=== PATIENT | male | born 2000 | race Caucasian/White ===

== ENCOUNTER 2023-05-17 11:58 | Emergency (ER) | payer OTHER, SELFPAY ==
--- NOTE | 2023-05-17 | ECG_ITS ---
Test Reason : chest pain Blood Pressure : / mmHG Vent. Rate : 088 BPM Atrial Rate : 088 BPM P-R Int : 170 ms QRS Dur : 102 ms QT Int : 356 ms P-R-T Axes : 029 -02 -01 degrees QTc Int : 430 ms Normal sinus rhythm Minimal voltage criteria for LVH, may be normal variant ( R in aVL ) Borderline ECG No previous ECGs available Referred By: Generic ED Physician Electronically Signed By:LILIA MCGHEE MD
[2023-05-17 12:29] VITALS: BP 124/79; PULSE 84; RESP 21; TEMP 37.1; O2SAT 97; BMI 35.1
--- NOTE | 2023-05-17 12:35 | ED_ITS ---
HPI - General Adult General Chief complaint: Arrhythmia/Palpitations Stated complaint: Heart palpitations - sent by urgent care Time Seen by Provider: 05/17/23 21:18 Related Data Allergies Allergy/AdvReac Type Severity Reaction Status Date / Time No Known Allergies Allergy Verified 05/17/23 12:35 [facility] Social History Social History Alcohol intake: never Physical Exam ED Vital Signs: Vital Signs - 24 hr 05/17/23 22:18 Pulse Rate 84 Respiratory Rate 18 Blood Pressure 138/86 Pulse Oximetry 96 Oxygen Delivery Method Room Air BMI result Body Mass Index 35.1 Course Course Course Narrative: RME performed by Barbie Cruz PA-C. Patient is a 22 year old assigned male at presenting to the emergency department with an irregular heart beat and intermittent chest pain since 05/03/2023. Detailed physical exam and review of systems are deferred to the behavioral health clinician. Labs ordered. Patient placed back in the waiting room pending room availability and results. Patient seen and dispositioned by Dr. Davis. Please see his note from this date. Medical Decision Making Lab Data 05/17/23 12:45 05/17/23 12:45 Labs: Lab Results 05/17/23 05/17/23 Range/Units 12:44 12:45 WBC 5.3 (4.8-10.8) X10*3/uL RBC 4.80 (4.60-5.80) X10*6/uL Hgb 13.9 L (14.0-18.0) g/dl Hct 41.6 L (42.0-52.0) % MCV 86.7 (80.0-98.0) fL MCH 29.0 (27.0-33.0) pg MCHC 33.4 (31.0-36.0) g/dl RDW 11.8 (11.0-16.0) % Plt Count 264 (160-400) X10*3/uL MPV 10.4 (9.4-12.4) fL Immature Gran % (Auto) 0.4 (0.0-0.4) % Neut % (Auto) 55.7 (45-73) % Lymph % (Auto) 30.0 (20-40) % [place] % (Auto) 8.9 (2-11) % Eos % (Auto) 4.4 H (0-4) % Baso % (Auto) 0.6 (0-2) % Lymph # (Auto) 1.6 (1.2-4.9) X10*3/uL [place] # (Auto) 0.5 (0.1-1.2) X10*3/uL Eos # (Auto) 0.2 (0.0-0.4) X10*3/uL Baso # (Auto) 0.0 (0.0-0.2) X10*3/uL Abs Immat Gran (auto) 0.02 (0.00-0.03) X10*3/uL Absolute Neuts (auto) 2.9 (2.0-8.3) x10*3/uL Absolute Nucleated RBC 0.000 (0.0-0.012) X10*3/uL Nucleated RBC % (auto) 0.0 (0.0-0.2) /100WBC Sodium 138 (135-145) mmol/L Potassium 4.0 (3.3-5.1) mmol/L Chloride 105 (96-108) mmol/L Carbon Dioxide 25 (22-29) mmol/L Anion Gap 12 (12-20) BUN 11 (9-16) mg/dL Creatinine 0.82 (0.5-1.4) mg/dL Estim Creat Clear Calc 196.1 Estimated GFR > 60 Random Glucose 93 (60-115) mg/dL Calcium 9.8 (8.4-10.2) mg/dL Magnesium 2.0 (1.6-2.6) mg/dL Total Bilirubin 0.6 (0.0-1.0) mg/dL AST 16 (5-37) U/L ALT 28 (0-40) U/L Alkaline Phosphatase 76 (39-117) U/L Troponin I High Sens < 2.7 (<3.5-35.0) ng/L Total Protein 7.7 (6.5-8.0) g/dL Albumin 4.7 (3.5-5.0) g/dL Influenza Type A (PCR) NEGATIVE (Negative) Influenza Type B (PCR) NEGATIVE (Negative) RSV RNA Qual (PCR) NEGATIVE (Negative) SARS-CoV-2 RNA (RT-PCR) NEGATIVE (Negative) Discharge Plan Discharge Clinical Impression: Palpitations Patient Disposition: Home, Self-Care Instructions: Heart Palpitations (ED) Referrals: Sonido Dodson MD [Physician] - 05/19/23 Interventions: ED Discharge Assessment Last Done: 05/17/23 22:19 Discharge Date/Time: 05/17/23 22:19
[2023-05-17 13:13] LABS: Alanine Aminotransferase 28 U/L (0-40); Albumin Level 4.7 g/dL (3.5-5.0); Alkaline Phosphatase 76 U/L (39-117); Anion Gap 12 (12-20); Aspartate Amino Transferase 16 U/L (5-37); Bilirubin Total 0.6 mg/dL (0.0-1.0); Blood Urea Nitrogen 11 mg/dL (9-16); Calcium 9.8 mg/dL (8.4-10.2); Carbon Dioxide 25 mmol/L (22-29); Chloride 105 mmol/L (96-108); Creatinine Clr Calc Pharmacy 196.1; Estimated Glomerular Filt Rate > 60; Glucose Random 93 mg/dL (60-115); Sodium 138 mmol/L (135-145); Total Protein 7.7 g/dL (6.5-8.0)
--- NOTE | 2023-05-17 21:46 | ED_ITS ---
HPI - Arrhythmia/Palpitations General Chief Complaint: Arrhythmia/Palpitations Stated Complaint: Heart palpitations - sent by urgent care Time Seen by Provider: 05/17/23 21:18 History of Present Illness HPI narrative: It is typically patient is a 22-year-old male presented today with having palpitations since [place]. Usually it is 1-2 beats. It did not make him pass out. He did feel kind of odd. He denies any recreational drug use. No energy drinks. No leg swelling. No history of blood clots in the past. No chest pain. No diaphoresis. No loss of consciousness. No near syncopal or syncopal episode. Patient no new medication. No fever no chills. No systemic complaints. These episodes are happening up proximally once every few hours. No history of similar symptoms in the past. Related Data Allergies Allergy/AdvReac Type Severity Reaction Status Date / Time No Known Allergies Allergy Verified 05/17/23 12:35 Review of Systems 2 Review of Systems: No fever no chills no chest pain positive palpitation Yes all other systems are reviewed and are negative [facility] Past Medical History Attestation statement: The following information was validated with the patient. Onset Date is defined in the Problem List Problems that require an onset date and time if occurred within 24 hrs of arrival to the ED Aortic Dissection and Rupture; Neurologic impairment; Cardiopulmonary Arrest; Endotracheal Intubation; Insertion or Replacement of Mechanical Circulatory Assist Device Social History Social History Advance Directives: No Advance Directives Information Provided: No Physical Exam 2 Vital Signs: Vital Signs: Last Vital Signs Temp 98.7 F 05/17/23 12:29 Pulse 84 05/17/23 12:29 Resp 21 H 05/17/23 12:29 BP 124/79 05/17/23 12:29 Pulse Ox 97 05/17/23 12:29 O2 Del Method Room Air 05/17/23 12:29 BMI result Body Mass Index 35.1 Appearance: Alert. Oriented X3. No acute distress. Eyes: Pupils equal, round and reactive to light. ENT: Pharynx normal. Neck: Normal inspection. Neck supple. No lymph nodes noted. No crepitus CVS: Normal heart rate and rhythm. Pulses normal. Normal S1 and S2 Respiratory: No respiratory distress. Breath sounds normal. No Wheezing. No rales Abdomen: Soft and nontender. No rigidity. No distention. good BS x4 Skin: Skin warm and dry. Normal skin color. Normal skin turgor. Extremities: No lower extremity edema. Neurovascular intact to all extremities. No Lacerations. No Rash Neuro: Oriented X 3. No motor deficit. No sensory deficit. Moving all extermities. No slurred speech Medical Decision Making Medical Decision Making [facility] Narrative: Patient having palpitation. Well-appearing no distress. No significant cardiac risk factors. No recreational drug use. No energy drinks. No alcohol. Patient is cardiac enzymes are normal. Hemoglobin is 13.9 there is no evidence for anemia. No distress. Patient's EKG in the ED was basically normal. Case discussed with cardiology team. Will have patient follow-up set up monitoring on an outpatient basis. Currently in stable condition will discharge home. Differential Diagnosis Differential Diagnoses: The differential diagnosis associated with the presentation includes Arrhythmia, PE, SVTs, V-tach, PVCs Admission/Observation Consideration of admission/observation: Escalation of care including admission/observation considered Patient well-appearing symptom only 1-2 beats. Thin feel patient needs to be admitted Consult Healthcare Provider Management of the patient was discussed with: Top Steep Tender (Cardiology) Lab Data [facility] Lab Attestation statement: I reviewed the patient's lab results. 05/17/23 12:45 05/17/23 12:45 Labs: Lab Results 05/17/23 05/17/23 Range/Units 12:44 12:45 WBC 5.3 (4.8-10.8) X10*3/uL RBC 4.80 (4.60-5.80) X10*6/uL Hgb 13.9 L (14.0-18.0) g/dl Hct 41.6 L (42.0-52.0) % MCV 86.7 (80.0-98.0) fL MCH 29.0 (27.0-33.0) pg MCHC 33.4 (31.0-36.0) g/dl RDW 11.8 (11.0-16.0) % Plt Count 264 (160-400) X10*3/uL MPV 10.4 (9.4-12.4) fL Immature Gran % (Auto) 0.4 (0.0-0.4) % Neut % (Auto) 55.7 (45-73) % Lymph % (Auto) 30.0 (20-40) % [place] % (Auto) 8.9 (2-11) % Eos % (Auto) 4.4 H (0-4) % Baso % (Auto) 0.6 (0-2) % Lymph # (Auto) 1.6 (1.2-4.9) X10*3/uL [place] # (Auto) 0.5 (0.1-1.2) X10*3/uL Eos # (Auto) 0.2 (0.0-0.4) X10*3/uL Baso # (Auto) 0.0 (0.0-0.2) X10*3/uL Abs Immat Gran (auto) 0.02 (0.00-0.03) X10*3/uL Absolute Neuts (auto) 2.9 (2.0-8.3) x10*3/uL Absolute Nucleated RBC 0.000 (0.0-0.012) X10*3/uL Nucleated RBC % (auto) 0.0 (0.0-0.2) /100WBC Sodium 138 (135-145) mmol/L Potassium 4.0 (3.3-5.1) mmol/L Chloride 105 (96-108) mmol/L Carbon Dioxide 25 (22-29) mmol/L Anion Gap 12 (12-20) BUN 11 (9-16) mg/dL Creatinine 0.82 (0.5-1.4) mg/dL Estim Creat Clear Calc 196.1 Estimated GFR > 60 Random Glucose 93 (60-115) mg/dL Calcium 9.8 (8.4-10.2) mg/dL Magnesium 2.0 (1.6-2.6) mg/dL Total Bilirubin 0.6 (0.0-1.0) mg/dL AST 16 (5-37) U/L ALT 28 (0-40) U/L Alkaline Phosphatase 76 (39-117) U/L Troponin I High Sens < 2.7 (<3.5-35.0) ng/L Total Protein 7.7 (6.5-8.0) g/dL Albumin 4.7 (3.5-5.0) g/dL Influenza Type A (PCR) NEGATIVE (Negative) Influenza Type B (PCR) NEGATIVE (Negative) RSV RNA Qual (PCR) NEGATIVE (Negative) SARS-CoV-2 RNA (RT-PCR) NEGATIVE (Negative) Independent Interpretation I performed an independent interpretation of an: EKG (Sinus heart rate is 75 ND QRS QTC within normal limits there is no acute ST segment elevation noted) Discharge Plan Discharge Clinical Impression: Palpitations Patient Disposition: Home, Self-Care Instructions: Heart Palpitations (ED) Referrals: Sonido Dodson MD [Physician] - 05/19/23
[2023-05-17 22:18] VITALS: BP 138/86; PULSE 84; RESP 18; O2SAT 96
== END 2023-05-17 22:19 | disposition home or self-care (01) ==
PROVIDERS: Physician Assistant Medical; Emergency Provider Emergency Medicine Emergency Medical Services; PCP Internal Medicine
DX: I49.9 Cardiac arrhythmia, unspecified (principal); Z20.822 Contact with and (suspected) exposure to COVID-19; Z20.828 Contact with and (suspected) exposure to other viral communicable diseases; Z79.899 Other long term (current) drug therapy
CPT/HCPCS: 0241U; 71046; 80053; 83735; 84484; 85025; 93005; 99283; 99284

== ENCOUNTER → 2023-05-17 12:24 | Outpatient (BNV) | payer OTHER, SELFPAY | PROVIDERS: PCP Internal Medicine; Visit Provider Internal Medicine Cardiovascular Disease | DX: R07.9 Chest pain, unspecified (principal); R00.2 Palpitations | CPT/HCPCS: 93010 ==

== ENCOUNTER 2023-05-25 13:45 | Outpatient (AMB) | payer OTHER, SELFPAY ==
--- NOTE | 2023-05-25 13:47 | MHC.OFFVIS ---
Intake Vital Signs 05/25/23 13:48 05/25/23 14:11 Height 6 ft 2 in Weight 274 lb 4.081 oz BMI 35.2 BP 130/64 124/64 Blood Pressure Location Rt brachial Lt femoral Position Sitting Sitting Pulse 89 Pulse Source Pulse Oximeter Intake Visit Reasons: [facility] [place] ED fu/Heart Palpitations/05-17-23 (NS) Intake Note: [facility] [place] ED F/up heart Palpitations / pt its still having the palpitations. 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 Patient reports these episodes feel like a flutter or skipped beats and last a few minutes at a time with occasional moments where it is hard to catch his breath and occur about every 2 hours. He reports no significant medical history but family history of heart disease, heart surgeries, and a sister with a heart murmur. He denies syncope, near syncope, lightheadedness, or chest pain on exertion. He states prior to the palpitations starting he was going to the gym a few times a week with no issues but stopped after going to the emergency room. He hydrates well and avoids caffeine and does drink alcohol 1-2 times per week. 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 He has an occatinal processed food lunch at work but overall tries to avoid carbs, sugar, or high fat foods. He has been logging the episodes and has not been able to find a trigger so far. He sees his new primary care provider in July. [facility] Medical History Palpitations Family History Mother High cholesterol High blood pressure Diabetes Sister Heart murmur Maternal Grandfather Heart failure High blood pressure Maternal Uncle H/O heart surgery Father High cholesterol Social History Unable to assess alcohol history related to: Unable to respond Alcohol intake: current Alcohol intake frequency: holidays/special occasions only Patient Tobacco Use Status: Current someday Tobacco user Tobacco use type: Cigar Review of Systems Const Denies chills, Denies fatigue, Denies fever(s), Denies frequent falls, Denies weakness, Denies weight gain and Denies weight loss ENT Denies dizziness Card Denies chest pain, Denies leg edema, Denies lightheadedness, Denies palpitations, Denies dyspnea and Denies dyspnea on exertion Resp Denies cough, Denies dyspnea and Denies dyspnea on exertion GI Denies hematochezia Musc Denies abnormal gait, Denies muscle weakness, Denies numbness, Denies radiating pain into limb and Denies tingling Neuro Denies abnormal gait, Denies dizziness, Denies frequent falls, Denies numbness, Denies tingling and Denies weakness Endo Denies fatigue and Denies palpitations Physical Exam Vital Signs: Last Vital Signs Pulse 89 05/25/23 13:48 BP 130/64 05/25/23 13:48 BMI result Body Mass Index 35.2 Const General: healthy appearing and no acute distress Orientation/consciousness: patient oriented x3 HEENT Head: Yes normal to inspection Eyes General: appearance normal, both eyes and all related structures Neck Neck: Yes normal visual inspection Chest Chest palpation & inspection: normal inspection of the chest Resp Effort & Inspection: normal respiratory effort Auscultation: clear to auscultation bilaterally Cardio Jugular venous distension: no JVD Palpation: normal PMI Rate: regular rate Rhythm: regular rhythm Heart sounds: S1 normal heart sound present, S2 normal heart sound present, no click, no gallops, no murmurs and no rubs GI Inspection: Yes normal to inspection Palpation (GI): Soft to palpation Skin General skin exam: no rashes or lesions noted Neuro General: patient oriented x3 Extrem General: Yes normal to inspection Psych Appearance: grossly normal Assessment & Plan Assessment & Plan (1) Palpitations: Code(s): R00.2 - Palpitations Plan EKG in the Emergency Room was normal sinus rhythm. Obtain echocardiogram and holter monitor to assess for arrhythmias and structural abnormalities. Discussed avoiding caffeine, alcohol, and stress. Good sleep hygiene encouraged along with hydration. Continue to log episodes an try to look at what was happening that day or what was different to help correlate triggers. Orders: Orders ECG 3 day holter monitor Today R00.2 - Palpitations CA echo transthoracic complete Today R00.2 - Palpitations Coding Level of Care Code New Pt Level 3 (64402) Diagnoses Palpitations R00.2
[2023-05-25 13:48] VITALS: BP 130/64; PULSE 89; BMI 35.2
[2023-05-25 14:11] VITALS: BP 124/64
== END 2023-05-25 14:47 | disposition home or self-care (01) ==
PROVIDERS: PCP Internal Medicine; Visit Provider Nurse Practitioner
DX: R00.2 Palpitations (principal)
CPT/HCPCS: 99203

== ENCOUNTER → 2023-05-25 13:45 | Outpatient (BNVA) | payer OTHER, SELFPAY | PROVIDERS: PCP Internal Medicine; Visit Provider Nurse Practitioner ==

== ENCOUNTER → 2023-06-15 13:51 | Outpatient (REF) | payer OTHER, SELFPAY ==
--- NOTE | 2023-06-15 13:54 | HM_ITS ---
Conclusion: 1. Patient was monitored for total period of 2 days and 23 hours 2. Baseline was normal sinus with average heart of 73 beats per minute 3. No significant pauses noted 4. Occasional PACs noted 5. Patient reported to events correlated with isolated PACs MTDD
--- NOTE | 2023-06-15 13:54 | CA_ITS ---
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 The calculated ejection fraction is 56% by biplane method. - Moderately increased right ventricular cavity size (5.5cm at base, 4.4cm at mid RV). - There is no evidence of interatrial shunt by agitated saline. - No obvious valvular pathology seen on this study. - Consider cardiac MRI for further evaluation, if clinically indicated. Findings Procedure Information Contrast agent, definity, is being given per protocol without apparent complications. Left Ventricle Normal left ventricular cavity size. There is normal left ventricular wall thickness. The left ventricular systolic function is normal. The calculated ejection fraction is 56% by biplane method. There is no evidence of regional wall motion abnormalities. Diastolic function is normal for age. Right Ventricle Moderately increased right ventricular cavity size. There is normal right ventricular systolic function. Atria Both atria are normal in size. There is no evidence of interatrial shunt by agitated saline. Aortic Valve There is a normal trileaflet aortic valve. There is no aortic valve stenosis. There is no aortic valve regurgitation. Mitral Valve The mitral valve appears normal. There is no mitral valve regurgitation. There is no mitral valve stenosis. Pulmonic Valve The pulmonic valve is likely normal. Tricuspid Valve There is mild tricuspid valve regurgitation. There is no evidence of pulmonary hypertension. Great Vessels The asc aorta is normal in size. Venous The inferior vena cava is normal in size and collapses greater than 50% with inspiration. Pericardium/Pleural There is no evidence of pericardial effusion. Prior Study Comparison No prior study available for comparison. Recommendations, Care & Conclusions No obvious valvular pathology seen on this study. Measurements 2D Linear Measurements IVSd: 1.14 0.6-0.9/0.6-1.0 cm LVIDd: 5.71 3.9-5.3/4.2-5.9 cm LVIDd Index: 2.35 2.4-3.2/2.2-3.1 cm/m2 LVIDs: 3.69 2.0-3.6 cm LVPWd: 1.04 0.7-1.1 cm LA Diam: 3.70 2.7-3.8/3.0-4.0 cm LAIDs Index: 1.52 1.5-2.3 cm/m2 LV Mass: 317.20 67-162/88-224 g LV Mass Index: 130.53 43-95/49-115 g/m2 LVOT Diam: 2.30 3.0+(-)1.3 cm 2D Volumes LA Vol: 22.70 2D Systolic Function EF 4C: 52.20 >55% EF 2C: 59.40 >55% EF BiP: 55.60 >55% Mitral Valve MV Pk E: 0.70 MV PK A: 0.58 MV Decel Time: 229.00 E/A: 1.20 E'Lateral: 13.10 E'Medial: 7.62 E/E' Med: 9.20 E/E' Lat: 5.30 PHT: 67.00 MVA PHT: 3.28 Decel [place]: 3.06 Aortic Valve AoV Pk Minh: 1.45 AoV Mn Minh: 0.99 AoV VTI: 0.28 AoV Pk Grad: 8.00 Aov Mn Grad: 4.00 DESIREE Cont.VTI: 3.29 LVOT LVOT Pk Minh: 1.12 LVOT Mn Minh: 0.70 LVOT VTI: 0.23 LVOT Pk Grad: 5.00 LVOT Mn Grad: 2.00 LVOT Diam: 2.30 LVOT Area: 4.15 Diastolic Function MV Pk E: 0.70 MV Pk A: 0.58 E/A: 1.20 E'Medial: 7.62 E/E' Med: 9.20 E' Laterial: 13.10 E/E' Lat: 5.30 Tricuspid Valve TR Pk Minh: 2.27 TR Pk Grad: 21.00 Great Vessels Aorta Sinus of Valsalva: 3.37 2.0-3.[address] [place]: 2.43 1.7-3.4 cm Ao Asc: 3.00 2.1-3.4 cm Ao Arch: 3.10 Updated in Other Vendor System with Status of Final Tacos Lundberg MD electronically signed on 06/17/2023 10:06:18 AM with status of Final
== END ==
LOC: HO.CARD 13:51
PROVIDERS: PCP Internal Medicine; Visit Provider Nurse Practitioner
DX: R00.2 Palpitations (principal)
CPT/HCPCS: 93242; 93306; Q9957

== ENCOUNTER → 2023-06-15 13:54 | Outpatient (BNV) | payer OTHER, SELFPAY | PROVIDERS: PCP Internal Medicine; Visit Provider Internal Medicine | DX: I49.1 Atrial premature depolarization (principal) | CPT/HCPCS: 93244; 93306 ==

== ENCOUNTER 2023-07-15 14:33 | Outpatient (AMB) | payer OTHER, SELFPAY ==
[2023-07-15 14:37] VITALS: BP 124/80; PULSE 86; BMI 33.4
--- NOTE | 2023-07-15 14:37 | MHC.OFFVIS ---
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 His symptoms of palpitations have improved although he still feels some skipped heartbeat per the much improved compared to before. Holter monitor showed isolated PACs. Echocardiogram showed enlarged RV and although there was no evidence of shunting by bubble contrast study. Patient denies any new symptoms. He said he has been losing weight and is overall feeling well. Denies any shortness of breath, fatigue with exertion. RV systolic function appears to be normal. [facility], [facility] Medical History (Updated 07/16/23 @ 15:49 by Sonido Dodson MD) Palpitations Enlarged RV (right ventricle) Family History Mother High cholesterol High blood pressure Diabetes Sister Heart murmur Maternal Grandfather Heart failure High blood pressure Maternal Uncle H/O heart surgery Father High cholesterol Social History Unable to assess alcohol history related to: Unable to respond Alcohol intake: current Alcohol intake frequency: holidays/special occasions only Patient Tobacco Use Status: Current someday Tobacco user Tobacco use type: Cigar Review of Systems Const Denies chills, Denies fatigue, Denies fever(s), Denies frequent falls, Denies weakness, Denies weight gain and Denies weight loss ENT Denies dizziness Card Denies chest pain, Denies leg edema, Denies lightheadedness, Denies palpitations, Denies dyspnea and Denies dyspnea on exertion Resp Denies cough, Denies dyspnea and Denies dyspnea on exertion GI Denies hematochezia Musc Denies abnormal gait, Denies muscle weakness, Denies numbness, Denies radiating pain into limb and Denies tingling Neuro Denies abnormal gait, Denies dizziness, Denies frequent falls, Denies numbness, Denies tingling and Denies weakness Endo Denies fatigue and Denies palpitations Physical Exam Vital Signs: Last Vital Signs Pulse 86 07/15/23 14:37 BP 124/80 07/15/23 14:37 BMI result Body Mass Index 33.4 Const General: healthy appearing and no acute distress Nutritional Appearance: obese Orientation/consciousness: patient oriented x3 HEENT Head: Yes normal to inspection Eyes General: appearance normal, both eyes and all related structures Neck Neck: Yes normal visual inspection Chest Chest palpation & inspection: normal inspection of the chest Resp Effort & Inspection: normal respiratory effort Auscultation: clear to auscultation bilaterally Cardio Jugular venous distension: no JVD Palpation: normal PMI Rate: regular rate Rhythm: regular rhythm Heart sounds: S1 normal heart sound present, S2 normal heart sound present, no click, no gallops, no murmurs and no rubs GI Inspection: Yes normal to inspection Palpation (GI): Soft to palpation Skin General skin exam: no rashes or lesions noted Neuro General: patient oriented x3 Extrem General: Yes normal to inspection Psych Appearance: grossly normal Assessment & Plan Assessment & Plan (1) Enlarged RV (right ventricle): Code(s): I51.7 - Cardiomegaly Plan: Enlarged right ventricular of unclear etiology. I would still like to rule out any form of intracardiac shunting. I have therefore recommended him to undergo transesophageal echocardiogram to evaluate for intracardiac shunting. Will perform GREER with bubble contrast to further assess for the same. I discussed the need for it including risks, benefits, alternatives. If this is within normal limits, will pursue sleep study to evaluate for obstructive sleep apnea that can cause RV enlargement. If this is within normal limits I would suggest a cardiac MRI to rule out possibility of infiltrative cardiomyopathy such as ARVC. This was discussed with him. He understands and agrees. No specific treatment is recommended. No restrictions were recommended at this point in time. (2) Palpitations: Code(s): R00.2 - Palpitations Plan: Palpitations related to isolated PACs. Benign nature of isolated PACs were discussed with him in details. Understands agrees. Avoidance of stimulants was discussed. Stress mitigation strategies were discussed. Will follow up in the clinic after above-mentioned test. Thank you for allowing me to partake in his care Orders: Orders CA echo transesophageal 07/15/23 I51.7 - Cardiomegaly RT home sleep study 07/15/23 G47.10 - Hypersomnia, unspecified, I51.7 - Cardiomegaly Coding Level of Care Code Est Pt Level 4 (02592) Diagnoses Enlarged RV (right ventricle) I51.7 Palpitations R00.2
== END 2023-07-15 15:08 | disposition home or self-care (01) ==
PROVIDERS: PCP Internal Medicine; Visit Provider Internal Medicine Cardiovascular Disease
DX: I51.7 Cardiomegaly (principal); R00.2 Palpitations
CPT/HCPCS: 99214

== ENCOUNTER → 2023-07-15 14:33 | Outpatient (BNVA) | payer OTHER, SELFPAY | PROVIDERS: PCP Internal Medicine; Visit Provider Internal Medicine Cardiovascular Disease ==

== ENCOUNTER 2023-07-23 11:54 | Day surgery (SDC) | payer OTHER, SELFPAY ==
--- NOTE | 2023-07-23 11:49 | HO.ANESPROP2 ---
[facility] Active Problems Active Problems: All Active Problems (Updated 07/16/23 @ 15:49 by Sonido Dodson MD) Palpitations (Acute) Enlarged RV (right ventricle) (Acute) Past Medical History Medical History Enlarged RV (right ventricle) Palpitations Family History Family History Mother High cholesterol High blood pressure Diabetes Sister Heart murmur Maternal Grandfather Heart failure High blood pressure Maternal Uncle H/O heart surgery Father High cholesterol Surgical History Surgical History [place] teeth removed History of Problems with Anesthesia: No Social History Social History Unable to assess alcohol history related to: Unable to respond Alcohol intake: current Alcohol intake frequency: holidays/special occasions only Patient Tobacco Use Status: Never used Tobacco Tobacco use type: Cigar Use of substances other than those prescribed or required for medical reasons: Yes Are you DNR?: No Advance Directives: No Advance Directives Information Provided: Yes Meds Allergies Allergy/AdvReac Type Severity Reaction Status Date / Time No Known Allergies Allergy Verified 05/17/23 12:35 Home Medications Medication Instructions Recorded Confirmed Last Taken Type No Known Home Meds 05/25/23 07/15/23 Unknown History Exam Airway Mallampati Class: II TM Dist: >3cm Neck ROM: Full Loose/Missing/Broken Teeth: No Heart: RRR Lungs: CTA Assessment and Plan Assessment Anesthesia Assessment: Anesthesia Plan Discussed and Chart Reviewed Final Anesthetic Review History of Problems with Anesthesia: No NPO: Yes ASA Class: II Final Preanesthetic Review: Meds/Allgs Chart Reviewed, Consent Obtained/Reviewed and Anes Risks/Benef Reviewed Patient Risk: Low Procedure Risk: Intermediate Anesthetic Plan Anesthetic Plan: MAC: Disposition: Standard PACU
[2023-07-23 12:24] VITALS: BMI 33.6
[2023-07-23 12:38] VITALS: BP 140/80; PULSE 75; RESP 16; TEMP 37.1; O2SAT 98
[2023-07-23] MEDS: Lactated Ringers 1,000 ML 80 ML IVCONT (12:51)
--- NOTE | 2023-07-23 13:02 | CA_ITS ---
Transesophageal Echocardiogram Patient (Last, First, Middle): Rigoberto Herrera, Gender: Male Date of : 2000 Age: 23 Procedure Date: 07/23/2023 Procedure Type: Transesophageal Echocardiogram Location: OP Height: 180.34 cm Weight: 104.33 kg BSA: 2.24 m2 Heart Rate: bpm Time Stamp Assembler: JOHN Referring MD: Sonido Dodson MD Marketing Support Assistant: Sonido Dodson MD Symptoms: Evaluate for cardiac shunt Conclusion: ??? Mild RV enlargement noted on today's study without any evidence of intracardiac shunting. Otherwise normal study Findings Procedure Information Consent was obtained prior to the procedure. Pre GREER oral cavity was checked and revealed no overcrowding. The adult 3D probe was passed with no difficulty. Left Ventricle Normal left ventricular size, thickness, and systolic function. The visually estimated ejection fraction is between 60-65%. Diastolic function is normal for age. Right Ventricle Mildly increased right ventricular cavity size. There is normal right ventricular systolic function. Atria Both atria are normal in size. There is no evidence of interatrial shunt by color Doppler and contrast. There is no evidence of an atrial septal defect. There is no evidence of thrombus or mass in the left atrium. the left upper, right upper and right lower pulmonary veins were draining normally to left atrium. The left atrial appendage shows no clots. There is no evidence of thrombus or mass in the right atrium. IVC and SVC drain normally into the right atrium. Aortic Valve Normal aortic valve structure and function. There is no aortic valve stenosis. There is no evidence of a mass on the aortic valve. There is no aortic valve regurgitation. Mitral Valve Normal mitral valve structure and function. There is no mitral valve regurgitation. There is no mitral valve stenosis. There is no mass noted on the mitral valve. Pulmonic Valve The pulmonic valve is normal. There is no mass noted on the pulmonic valve. There is no pulmonic valve regurgitation. Tricuspid Valve Normal tricuspid valve structure. There is mild tricuspid valve regurgitation. There is no evidence of a mass on the tricuspid valve. Great Vessels All visible segments of the aorta are normal in size. The visualized portions of the pulmonary artery and branches are normal. Venous The inferior vena cava is normal in size and collapses greater than 50% with inspiration. Pericardium/Pleural There is no evidence of pericardial effusion. Updated by Sonido Dodson on 01:06 PM with Status of Final Sonido Dodson MD electronically signed on 07/25/2023 1:06:31 PM with status of Final
--- NOTE | 2023-07-23 13:03 | MHC.SHP ---
Pre-Procedural Eval Section A - 24 Hr Update-Section A only Date of Service: 07/23/23 The patient is an INPATIENT: No Changes since office visit: Yes Patient answered all questions; No Cold of Flu in the past 2 weeks, No New Medical Problems and No Changes in Medication The patient has been examined within 24 hours of the surgical procedure. The History & Physical has been completed within 30 days and I have reviewed it.: Yes Section B - Complete if H&P > 30 days Chief Complaint: Cardiomegaly Allergies: Allergies Allergy/AdvReac Type Severity Reaction Status Date / Time No Known Allergies Allergy Verified 05/17/23 12:35 Plan I have reviewed the history and physical and performed a pertinent physical examination on my patient. No changes have occurred unless specified. Time Spent With Patient Time: Total time managing care of this patient today ____ minutes.
[2023-07-23 14:35] VITALS: BP 124/68; PULSE 106; RESP 18; TEMP 36.3; O2SAT 98
[2023-07-23 14:50] VITALS: BP 114/58; PULSE 78; RESP 18; O2SAT 97
[2023-07-23 15:04] VITALS: BP 106/65; PULSE 79; RESP 18; O2SAT 100
== END 2023-07-23 15:33 | disposition home or self-care (01) ==
PROVIDERS: PCP Internal Medicine; Visit Provider Internal Medicine Cardiovascular Disease
PROC: (CPT 93312; principal; 2023-07-23 13:30)
DX: I51.7 Cardiomegaly (principal); R00.2 Palpitations
CPT/HCPCS: 93312; J2250; J2704

== ENCOUNTER → 2023-07-23 13:02 | Outpatient (BNV) | payer OTHER, SELFPAY | PROVIDERS: PCP Internal Medicine; Visit Provider Internal Medicine Cardiovascular Disease | DX: I51.7 Cardiomegaly (principal) | CPT/HCPCS: 93312 ==

== ENCOUNTER → 2023-08-25 15:48 | Outpatient (REF) | payer OTHER, SELFPAY ==
[2023-08-25 17:19] LABS: Anion Gap 11 (12-20); Blood Urea Nitrogen 16 mg/dL (9-16); Calcium 9.8 mg/dL (8.4-10.2); Carbon Dioxide 26 mmol/L (22-29); Chloride 106 mmol/L (96-108); Estimated Glomerular Filt Rate > 60; Glucose Random 73 mg/dL (60-115); Potassium 3.9 mmol/L (3.3-5.1); Sodium 139 mmol/L (135-145)
== END ==
LOC: HO.SL 15:48
PROVIDERS: PCP Internal Medicine; Visit Provider Internal Medicine Cardiovascular Disease
DX: I51.7 Cardiomegaly (principal); G47.10 Hypersomnia, unspecified
CPT/HCPCS: 36415; 80048; 95806

== ENCOUNTER → 2023-08-25 16:03 | Outpatient (BNV) | payer OTHER, SELFPAY | PROVIDERS: PCP Internal Medicine; Visit Provider Internal Medicine | DX: R06.83 Snoring (principal); R40.0 Somnolence | CPT/HCPCS: 95806 ==

== ENCOUNTER 2023-10-27 10:59 | Outpatient (AMB) | payer OTHER, SELFPAY ==
[2023-10-27 11:01] VITALS: BP 120/80; PULSE 93; BMI 32.5
--- NOTE | 2023-10-27 11:01 | MHC.OFFVIS ---
Vital Signs 10/27/23 11:01 Height 6 ft 2 in Weight 253 lb 8.505 oz BMI 32.5 BP 120/80 Blood Pressure Location Lt brachial Position Sitting Pulse 93 Intake Visit Reasons: 3m follow up/T.E.E/Sleep study/Cardiac MRI Intake Note: 3 month follow-up after RGEER , sleep study and cardiac MRI Inspector Subassembly Required: No Allergies No Known Allergies Allergy (Verified 05/17/23 12:35) Medication List - Last Reconciled 10/27/23 by Sonido Dodson MD No Known Home Meds HPI Comments Details: Rigoberto Comes for follow-up. He continues to have symptoms of palpitation very feels a strong heartbeat which are very sporadic and not any consistent pattern. He has not that bothered are limited in his day-to-day activity because of that. His workup so far has shown no evidence of intracardiac shunting, no significant sleep apnea, and cardiac MRI shows mildly enlarged right ventricular with excessive trabeculation but normal RV systolic function. [facility] Medical History Enlarged RV (right ventricle) Palpitations Surgical History [place] teeth removed Family History Mother High cholesterol High blood pressure Diabetes Sister Heart murmur Maternal Grandfather Heart failure High blood pressure Maternal Uncle H/O heart surgery Father High cholesterol Social History Unable to assess alcohol history related to: Unable to respond Alcohol intake: current Alcohol intake frequency: holidays/special occasions only Patient Tobacco Use Status: Never used Tobacco Tobacco use type: Cigar Review of Systems Const Denies chills, Denies fatigue, Denies fever(s), Denies frequent falls, Denies weakness, Denies weight gain and Denies weight loss ENT Denies dizziness Card Denies chest pain, Denies leg edema, Denies lightheadedness, Denies palpitations, Denies dyspnea, Denies dyspnea on exertion, Denies orthopnea and Denies other (loss of consciousness) Resp Denies cough, Denies dyspnea and Denies dyspnea on exertion GI Denies hematochezia and Denies change in stool character Musc Denies abnormal gait, Denies muscle weakness, Denies numbness, Denies radiating pain into limb and Denies tingling Neuro Denies abnormal gait, Denies dizziness, Denies frequent falls, Denies numbness, Denies tingling and Denies weakness Endo Denies fatigue and Denies palpitations Physical Exam Vital Signs: Last Vital Signs Pulse 93 10/27/23 11:01 BP 120/80 10/27/23 11:01 BMI result Body Mass Index 32.5 Const General: healthy appearing and no acute distress Nutritional Appearance: obese Orientation/consciousness: patient oriented x3 Eyes General: appearance normal, both eyes and all related structures Neck Neck: Yes normal visual inspection Chest Chest palpation & inspection: normal inspection of the chest Resp Effort & Inspection: normal respiratory effort Auscultation: clear to auscultation bilaterally Cardio Jugular venous distension: no JVD Palpation: normal PMI Rate: regular rate Rhythm: regular rhythm Heart sounds: S1 normal heart sound present, S2 normal heart sound present, no click, no gallops, no murmurs and no rubs GI Inspection: Yes normal to inspection Palpation (GI): Soft to palpation Skin General skin exam: no rashes or lesions noted Neuro General: patient oriented x3 Extrem General: Yes normal to inspection Psych Appearance: grossly normal Assessment & Plan Assessment & Plan (1) Enlarged RV (right ventricle): Code(s): I51.7 - Cardiomegaly Category: Medical Plan: 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 RV systolic and LV systolic function preserved. The no other secondary causes for RV enlargement at this time. Will continue monitor clinically. Possible signs associated with cardiomyopathy process was discussed with him. 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 Would avoid pharmacotherapy at this point time. Avoidance of stimulants was discussed advised to call me with increase in frequency and symptoms.There is no evidence of arrhythmogenic right ventricular dysplasia on the cardiac MRI Will follow up in the clinic in 2 years time, sooner p.r.n.. Thank you for allowing me to partake in his care Coding Level of Care Code Est Pt Level 4 (04031) Diagnoses Enlarged RV (right ventricle) I51.7
== END 2023-10-27 11:26 | disposition home or self-care (01) ==
PROVIDERS: PCP Internal Medicine; Visit Provider Internal Medicine Cardiovascular Disease
DX: I51.7 Cardiomegaly (principal)
CPT/HCPCS: 99214

== ENCOUNTER → 2023-10-27 10:59 | Outpatient (BNVA) | payer OTHER, SELFPAY | PROVIDERS: PCP Internal Medicine; Visit Provider Internal Medicine Cardiovascular Disease ==